=== PATIENT | male | born 1985 | race American Indian/Alaskan Native ===

== ENCOUNTER 2019-03-29 05:22 | Emergency (ER) | payer MEDICARE ==
[2019-03-29 05:43] VITALS: BP 127/84
[2019-03-29] MEDS ORDERED: ZITHROMAX PO ONE (08:23)
[2019-03-29] MEDS ORDERED: ROCEPHIN IM ONE (08:23)
[2019-03-29] MEDS ORDERED: XYLOCAINE 1% MPF 5 mL INFILTRATI ONE (08:23)
--- NOTE | 2019-03-29 08:45 | Emergency Department Report ---
HPI - General Chief Complaint: Neck Pain/Injury Time Seen by Provider: 03/29/19 08:22 - HPI HPI: 33 yo AA Tashia presents to the emergency department with the complaint of a 1-2 day history of penile discharge. He says that his girlfriend of 7 years also just told him that she had an STD and may have given it to him. He has some mild dysuria. No penile or scrotal lesions. No previous history of any STDs. He has not taken anything for his symptoms prior to presentation. ED Past Medical Hx - Past Medical History Previous Medical History?: Yes Hx Asthma: Yes - Surgical History Past Surgical History?: No - Social History Smoking Status: Never Smoker Substance Use Type: None ED Review of Systems ROS: Stated complaint: NECK PAIN, STD CHECK Other details as noted in HPI Comment: All other systems reviewed and negative Constitutional: denies: chills, fever Eyes: denies: eye pain, vision change ENT: denies: ear pain, throat pain Respiratory: denies: cough, shortness of breath Cardiovascular: denies: chest pain, palpitations Gastrointestinal: denies: abdominal pain, vomiting Genitourinary: dysuria, discharge Musculoskeletal: denies: back pain, arthralgia Skin: denies: rash, lesions Neurological: denies: headache, weakness Physical Exam - Physical Exam Vital Signs: Vital Signs 03/29/19 05:27 Temperature 97.5 F L Pulse Rate 82 Respiratory 18 Rate Blood Pressure 127/84 [Right] O2 Sat by Pulse 100 Oximetry Physical Exam: GENERAL: The patient is well-developed well-nourished. HENT: Normocephalic. Atraumatic. Patient has moist mucous membranes. EYES: Extraocular motions are intact. NECK: Supple. No meningitic signs are noted. There is no adenopathy noted. CHEST/LUNGS: Clear to auscultation. There is no respiratory distress noted. HEART/CARDIOVASCULAR: Regular. There is no tachycardia. There is no murmur. ABDOMEN: There is no abdominal distention. SKIN: No rash or lesions seen. NEURO: The patient is awake, alert, and oriented. The patient is cooperative. The patient has normal speech and gait. MUSCULOSKELETAL: There is no tenderness or deformity. There is no limitation range of motion. There is no evidence of acute injury. : There is a small amount of milky white discharge seen coming from the tip of the urethra. No penile or scrotal rash or lesions. ED Course Vital Signs 03/29/19 05:27 Temperature 97.5 F L Pulse Rate 82 Respiratory 18 Rate Blood Pressure 127/84 [Right] O2 Sat by Pulse 100 Oximetry ED Medical Decision Making - Medical Decision Making Patient does appear to have signs of urethritis with some mild discharge seen coming from the urethra and a history of STD exposure. He was given Rocephin and azithromycin. He understands to avoid any sexual contact for at least 1 week from this point. He will return to the emergency Department with any worsening of his symptoms or any acute distress. - Differential Diagnosis gonorrhea, chlamydia, UTI Critical Care Time: No Critical care attestation.: If time is entered above; I have spent that time in minutes in the direct care of this critically ill patient, excluding procedure time. ED Disposition Clinical Impression: STD exposure, Urethritis Disposition: [id number] TO HOME OR SELFCARE Is pt being admited?: No Condition: Stable Instructions: Nonspecific Urethritis in Men (ED) Additional Instructions: Please follow up with your PCP when you return to [place]. Do not engage in any sexual activity for at least one week after getting the medications here today. Return to the emergency department with any worsening of your symptoms or any acute distress. Referrals: PCP, Your [Other] - 3-5 Days Forms: STI Treatment and Prevention
== END 2019-03-29 09:55 | disposition home or self-care (01) ==
LOC: ED 05:22
DX: N34.2 Other urethritis (principal); Z20.2 Contact with and (suspected) exposure to infections with a predominantly sexual mode of transmission; J45.909 Unspecified asthma, uncomplicated
CPT/HCPCS: 96372; 99282; J0696